=== PATIENT | male | born 1960 | race Two or more races ===

== ENCOUNTER 2020-06-12 15:09 | Inpatient (IN) | payer BC, OTHER ==
[~2020-06-12] VITALS: Ht 165.1 cm; Wt 101.0 kg
--- NOTE | 2020-06-12 15:19 | NUR ---
OXYGEN PLACED IN TRIAGE , PT NOW SATTING 91% ON 6L NC
--- NOTE | 2020-06-12 16:04 | NUR ---
COVID + TESTED TWO WEEKS AGO , LOW PULSE OX READING AT HOME. 75% PER FAMILY REPORT. COUGH, SOB, HEADACHE X 2 WEEKS. PT IN BED IN GOWN,ON CONT [employer], SPO2, BP Q 30 MIN, SIDE RAILS UP X2, CALL LIGHTIN REACH.
[2020-06-12 16:50] LABS: BASOPHILS % (AUTO) 0 % (0-1); EOSINOPHILS % (AUTO) 1 % (1-7); LYMPHOCYTES % (AUTO) 14 % (22-44); MEAN CORPUSCULAR HEMOGLOBIN 31.3 pg (27.5-34.5); MEAN CORPUSCULAR HGB CONC 34.1 g/dL (33.2-36.2); MEAN PLATELET VOLUME 7.6 fL (7.4-10.4); MONOCYTES % (AUTO) 10 % (2-9); NEUTROPHILS % (AUTO) 75 % (42-75); PLATELET COUNT 493 x10^3/uL (130-400); RED BLOOD COUNT 4.96 x10^6/uL (4.38-5.82); RED CELL DISTRIBUTION WIDTH 13.8 % (9.4-14.8)
[2020-06-12 16:54] LABS: ALANINE AMINOTRANSFERASE 46 U/L (12-78); ALBUMIN 2.7 g/dL (3.4-5.0); ANION GAP 6 mmol/L (5-15); CALCIUM 8.7 mg/dL (8.5-10.1); CHLORIDE 103 mmol/L (98-107); CREATININE 1.14 mg/dL (0.7-1.3); MD NO
[2020-06-12 16:57] LABS: ALKALINE PHOSPHATASE 81 U/L (45-117); BILIRUBIN,TOTAL 0.5 mg/dL (0.2-1.0); TOTAL PROTEIN 7.8 g/dL (6.4-8.2)
[2020-06-12] MEDS ORDERED: DOXYCYCLINE 100 MG in DEXTROSE 5% 250 ML IV ONE (17:00)
[2020-06-12] MEDS ORDERED: DEXAMETHASONE 4 MG/ML, 1ML IVPush ONE (17:00)
[2020-06-12] MEDS ORDERED: DEXAMETHASONE 4 MG/ML, 1ML ONE (17:46)
--- NOTE | 2020-06-12 18:48 | NUR ---
RICARDO TURNER RN ASSUMING CARE OF PT AT THIS TIME
--- NOTE | 2020-06-12 18:55 | NUR ---
HOSPTIALIST AT BEDSIDE FOR ADMIT AT THIS TIME
[2020-06-12] MEDS ORDERED: SODIUM CHLORIDE FLUSH 10ML SYR IVF PRN (19:00)
--- NOTE | 2020-06-12 20:09 | NUR ---
report to Bridgett pt ready for transfer to room [id number]
[2020-06-12] MEDS ORDERED: ONDANSETRON ODT 4 MG PO PRN (20:30)
[2020-06-12] MEDS ORDERED: LIDODERM 5% PATCH TD PRN (20:30)
[2020-06-12] MEDS ORDERED: ACETAMINOPHEN 325 MG TABLET PO PRN (20:30)
[2020-06-12] MEDS ORDERED: LABETALOL 5MG/ML, 20ML IVPush PRN (20:30)
[2020-06-12] MEDS ORDERED: DOCUSATE 100 MG CAPSULE PO PRN (20:30)
[2020-06-12] MEDS ORDERED: PHARMACY MAY ADJ FOR RENAL FX MC PRN (20:30)
[2020-06-12 20:41] VITALS: BP 113/57
[2020-06-12 21:03] LABS: TROPONIN I < 0.015 ng/mL (0.000-0.045)
[2020-06-12] MEDS: ASCORBIC ACID 500 MG TABLET PO SCH (21:27)
[2020-06-12] MEDS: MELATONIN 5 MG TABLET PO PRN (21:27)
[2020-06-12] MEDS: ENOXAPARIN 40 MG/0.4 ML SQ SCH (21:27)
[2020-06-12] MEDS: GUAIFENESIN/DM 200-20MG, 10ML UDC PO PRN (21:27)
[2020-06-12] MEDS: CHOLECALCIFEROL 5,000u TAB PO SCH (21:27)
[2020-06-12 22:16] LABS: RAPID INFLUENZA A Negative (Negative); RAPID INFLUENZA B Negative (Negative)
[2020-06-12] MEDS: CEFTRIAXONE PMX 1GM/50ML 50 ML IV SCH (22:53)
[2020-06-13 02:13] VITALS: BP 115/76
[2020-06-13] MEDS: GUAIFENESIN/DM 200-20MG, 10ML UDC PO PRN ×2 (03:07→20:56)
[2020-06-13] MEDS ORDERED: DOXYCYCLINE 100 MG in DEXTROSE 5% 250 ML IV SCH (05:00)
[2020-06-13 06:06] LABS: BASOPHILS % (AUTO) 0 % (0-1); EOSINOPHILS % (AUTO) 0 % (1-7); LYMPHOCYTES % (AUTO) 15 % (22-44); MEAN CORPUSCULAR HEMOGLOBIN 31.7 pg (27.5-34.5); MEAN CORPUSCULAR HGB CONC 34.5 g/dL (33.2-36.2); MEAN PLATELET VOLUME 7.5 fL (7.4-10.4); MONOCYTES % (AUTO) 8 % (2-9); NEUTROPHILS % (AUTO) 76 % (42-75); PLATELET COUNT 514 x10^3/uL (130-400); RED BLOOD COUNT 4.48 x10^6/uL (4.38-5.82); RED CELL DISTRIBUTION WIDTH 13.4 % (9.4-14.8)
[2020-06-13 06:09] LABS: ANION GAP 10 mmol/L (5-15); CALCIUM 8.5 mg/dL (8.5-10.1); CHLORIDE 104 mmol/L (98-107)
[2020-06-13 06:11] LABS: CREATININE 0.94 mg/dL (0.7-1.3)
[2020-06-13 06:39] VITALS: BP 117/73
[2020-06-13 06:40] LABS: HCT (SEDRATE) 41.1 % (39.2-51.8)
[2020-06-13 06:57] LABS: MD SCAN
[2020-06-13] MEDS: DEXAMETHASONE 4 MG/ML, 1ML IVPush SCH (08:53)
[2020-06-13] MEDS: ASCORBIC ACID 500 MG TABLET PO SCH ×3 (08:53→20:57)
[2020-06-13] MEDS: ZINC SULFATE 220 MG CAPSULE PO SCH (08:53)
[2020-06-13] MEDS: CHOLECALCIFEROL 5,000u TAB PO SCH (08:54)
[2020-06-13 12:02] VITALS: BP 111/70
[2020-06-13 15:40] LABS: D-DIMER 0.34 ug/mlFEU (0.00-0.52)
[2020-06-13 20:51] VITALS: BP 129/91
[2020-06-13] MEDS: DOXYCYCLINE 100MG TABLET PO SCH (20:56)
[2020-06-13] MEDS: MELATONIN 5 MG TABLET PO PRN (20:57)
[2020-06-13] MEDS: ENOXAPARIN 40 MG/0.4 ML SQ SCH (20:57)
[2020-06-13] MEDS: CEFTRIAXONE PMX 1GM/50ML 50 ML IV SCH (23:33)
[2020-06-14 01:39] VITALS: BP 121/77
[2020-06-14 06:15] LABS: HCT (SEDRATE) 42.1 % (39.2-51.8)
[2020-06-14 06:19] LABS: ANION GAP 7 mmol/L (5-15); CALCIUM 8.8 mg/dL (8.5-10.1); CHLORIDE 106 mmol/L (98-107); CREATININE 1.06 mg/dL (0.7-1.3)
[2020-06-14 06:28] VITALS: BP 114/72
[2020-06-14 06:37] LABS: BASOPHILS % (AUTO) 0 % (0-1); EOSINOPHILS % (AUTO) 0 % (1-7); LYMPHOCYTES % (AUTO) 12 % (22-44); MEAN CORPUSCULAR HEMOGLOBIN 30.9 pg (27.5-34.5); MEAN CORPUSCULAR HGB CONC 33.4 g/dL (33.2-36.2); MEAN PLATELET VOLUME 7.7 fL (7.4-10.4); MONOCYTES % (AUTO) 10 % (2-9); NEUTROPHILS % (AUTO) 78 % (42-75); PLATELET COUNT 606 x10^3/uL (130-400); RED BLOOD COUNT 4.65 x10^6/uL (4.38-5.82); RED CELL DISTRIBUTION WIDTH 13.1 % (9.4-14.8)
[2020-06-14 07:03] LABS: D-DIMER 0.31 ug/mlFEU (0.00-0.52); INTERNATIONAL NORMALIZED RATIO 1.01 (0.93-1.1); PROTHROMBIN TIME 10.7 Seconds (9.6-11.5)
[2020-06-14] MEDS: ASCORBIC ACID 500 MG TABLET PO SCH ×4 (08:12→20:48)
[2020-06-14 08:14] LABS: MD SCAN
[2020-06-14] MEDS: DOXYCYCLINE 100MG TABLET PO SCH ×2 (08:15→20:47)
[2020-06-14] MEDS: ZINC SULFATE 220 MG CAPSULE PO SCH (08:15)
[2020-06-14] MEDS: DEXAMETHASONE 4 MG/ML, 1ML IVPush SCH (08:16)
[2020-06-14] MEDS: CHOLECALCIFEROL 5,000u TAB PO SCH (08:16)
[2020-06-14 12:00] VITALS: BP 117/73
[2020-06-14] MEDS ORDERED: REMDESIVIR 200 MG in SODIUM CHLORIDE 0.9% 250 ML IVPB ONE (14:00)
[2020-06-14 18:43] VITALS: BP 114/71
[2020-06-14] MEDS: ENOXAPARIN 40 MG/0.4 ML SQ SCH (20:47)
[2020-06-14] MEDS: MELATONIN 5 MG TABLET PO PRN (20:47)
[2020-06-14] MEDS: GUAIFENESIN/DM 200-20MG, 10ML UDC PO PRN (20:47)
[2020-06-15] MEDS: CEFTRIAXONE PMX 1GM/50ML 50 ML IV SCH (00:33)
[2020-06-15 01:50] VITALS: BP 107/68
[2020-06-15 06:23] LABS: HCT (SEDRATE) 41.8 % (39.2-51.8)
[2020-06-15 06:27] LABS: BASOPHILS % (AUTO) 0 % (0-1); EOSINOPHILS % (AUTO) 0 % (1-7); LYMPHOCYTES % (AUTO) 15 % (22-44); MEAN CORPUSCULAR HEMOGLOBIN 31.5 pg (27.5-34.5); MEAN CORPUSCULAR HGB CONC 34.3 g/dL (33.2-36.2); MEAN PLATELET VOLUME 7.3 fL (7.4-10.4); MONOCYTES % (AUTO) 11 % (2-9); NEUTROPHILS % (AUTO) 73 % (42-75); PLATELET COUNT 680 x10^3/uL (130-400); RED BLOOD COUNT 4.52 x10^6/uL (4.38-5.82); RED CELL DISTRIBUTION WIDTH 13.4 % (9.4-14.8)
[2020-06-15 06:34] LABS: CHLORIDE 109 mmol/L (98-107)
[2020-06-15 06:37] VITALS: BP 123/79
[2020-06-15 06:39] LABS: ALANINE AMINOTRANSFERASE 47 U/L (12-78); ALBUMIN 2.6 g/dL (3.4-5.0); ALKALINE PHOSPHATASE 66 U/L (45-117); ANION GAP 10 mmol/L (5-15); BILIRUBIN,TOTAL 0.4 mg/dL (0.2-1.0); CALCIUM 8.4 mg/dL (8.5-10.1); CREATININE 1.02 mg/dL (0.7-1.3)
[2020-06-15 06:55] LABS: MD SCAN
[2020-06-15] MEDS: ZINC SULFATE 220 MG CAPSULE PO SCH (10:14)
[2020-06-15] MEDS: ASCORBIC ACID 500 MG TABLET PO SCH ×3 (10:14→20:45)
[2020-06-15] MEDS: DOXYCYCLINE 100MG TABLET PO SCH ×2 (10:15→20:45)
[2020-06-15] MEDS: CHOLECALCIFEROL 5,000u TAB PO SCH (10:15)
[2020-06-15] MEDS: DEXAMETHASONE 4 MG/ML, 5ML IVPush SCH (12:24)
[2020-06-15 14:00] VITALS: BP 110/72
[2020-06-15] MEDS: REMDESIVIR 100 MG in SODIUM CHLORIDE 0.9% 250 ML IVPB SCH (14:24)
[2020-06-15] MEDS: GUAIFENESIN/DM 200-20MG, 10ML UDC PO PRN (17:00)
[2020-06-15 18:35] VITALS: BP 105/68
[2020-06-15] MEDS: ENOXAPARIN 40 MG/0.4 ML SQ SCH (20:45)
[2020-06-15] MEDS: MELATONIN 5 MG TABLET PO PRN (20:45)
[2020-06-16 00:01] VITALS: BP 118/74
[2020-06-16] MEDS: CEFTRIAXONE PMX 1GM/50ML 50 ML IV SCH (00:27)
[2020-06-16 06:28] VITALS: BP 110/73
[2020-06-16 06:38] LABS: HCT (SEDRATE) 47.3 % (39.2-51.8)
[2020-06-16 06:39] LABS: MEAN CORPUSCULAR HEMOGLOBIN 31.4 pg (27.5-34.5); MEAN CORPUSCULAR HGB CONC 33.6 g/dL (33.2-36.2); MEAN PLATELET VOLUME 7.7 fL (7.4-10.4); PLATELET COUNT 803 x10^3/uL (130-400); RED BLOOD COUNT 5.01 x10^6/uL (4.38-5.82); RED CELL DISTRIBUTION WIDTH 13.6 % (9.4-14.8)
[2020-06-16 06:48] LABS: ANION GAP 7 mmol/L (5-15); CALCIUM 8.9 mg/dL (8.5-10.1); CHLORIDE 106 mmol/L (98-107); CREATININE 1.13 mg/dL (0.7-1.3)
[2020-06-16 06:49] LABS: ALANINE AMINOTRANSFERASE 54 U/L (12-78)
[2020-06-16 06:53] LABS: ALKALINE PHOSPHATASE 66 U/L (45-117); BILIRUBIN,TOTAL 0.4 mg/dL (0.2-1.0); TOTAL PROTEIN 7.7 g/dL (6.4-8.2)
[2020-06-16 06:57] LABS: D-DIMER 0.4 ug/mlFEU (0.00-0.52); INTERNATIONAL NORMALIZED RATIO 1.03 (0.93-1.1); PROTHROMBIN TIME 10.9 Seconds (9.6-11.5)
[2020-06-16 07:29] LABS: MD YES
[2020-06-16 07:30] LABS: BAND#(MANUAL) 0.97 x10^3/uL; BANDS%(MANUAL) 7 % (0-7); METAMYELOCYTES# (MANUAL) 0.55 x10^3/uL (0-0); METAMYELOCYTES% (MANUAL) 4 % (0-1); MONOS% (MANUAL) 8 % (2-9); MYELOCYTES# (MANUAL) 0.14 x10^3/uL (0-0); MYELOCYTES% (MANUAL) 1 % (0-0); REACTIVE LYMPHS # (MANUAL) 0.14 x10^3/uL (0-0); REACTIVE LYMPHS % (MANUAL) 1 % (0-0)
[2020-06-16 07:31] LABS: <PLATELET ESTIMATE> INCREASED; <PLT MORPHOLOGY> NORMAL PLT MORPH; <RBC MORPHOLOGY> NORMAL; LYMPH#(MANUAL) 2.62 x10^3/uL (1-3.4); LYMPHS% (MANUAL) 19 % (22-44); SEG#(MANUAL) 8.28 x10^3/uL (1.8-6.8); SEGS% (MANUAL) 60 % (42-75)
[2020-06-16] MEDS: ASCORBIC ACID 500 MG TABLET PO SCH ×3 (09:10→21:33)
[2020-06-16] MEDS: ZINC SULFATE 220 MG CAPSULE PO SCH (09:10)
[2020-06-16] MEDS: CHOLECALCIFEROL 5,000u TAB PO SCH (09:10)
[2020-06-16] MEDS: DOXYCYCLINE 100MG TABLET PO SCH ×2 (09:10→21:33)
[2020-06-16] MEDS: DEXAMETHASONE 4 MG/ML, 5ML IVPush SCH (09:11)
[2020-06-16 13:08] VITALS: BP 124/78
[2020-06-16] MEDS: REMDESIVIR 100 MG in SODIUM CHLORIDE 0.9% 250 ML IVPB SCH (15:37)
[2020-06-16 20:10] VITALS: BP 126/79
[2020-06-16] MEDS: ENOXAPARIN 40 MG/0.4 ML SQ SCH (21:33)
[2020-06-16] MEDS: MELATONIN 5 MG TABLET PO PRN (21:38)
[2020-06-17 00:07] VITALS: BP 119/79
[2020-06-17] MEDS: CEFTRIAXONE PMX 1GM/50ML 50 ML IV SCH (00:07)
[2020-06-17 07:34] LABS: MEAN CORPUSCULAR HEMOGLOBIN 31.4 pg (27.5-34.5); MEAN CORPUSCULAR HGB CONC 33.9 g/dL (33.2-36.2); MEAN PLATELET VOLUME 7.1 fL (7.4-10.4); PLATELET COUNT 852 x10^3/uL (130-400); RED BLOOD COUNT 4.95 x10^6/uL (4.38-5.82); RED CELL DISTRIBUTION WIDTH 13.3 % (9.4-14.8)
[2020-06-17 07:39] LABS: ALANINE AMINOTRANSFERASE 50 U/L (12-78); ALBUMIN 2.9 g/dL (3.4-5.0); ANION GAP 8 mmol/L (5-15); CALCIUM 8.8 mg/dL (8.5-10.1); CHLORIDE 108 mmol/L (98-107); CREATININE 1.08 mg/dL (0.7-1.3)
[2020-06-17 07:42] LABS: ALKALINE PHOSPHATASE 62 U/L (45-117); BILIRUBIN,TOTAL 0.4 mg/dL (0.2-1.0); HCT (SEDRATE) 46.5 % (39.2-51.8); TOTAL PROTEIN 7.3 g/dL (6.4-8.2)
[2020-06-17 07:44] VITALS: BP 110/74
[2020-06-17 08:01] LABS: MD YES
[2020-06-17 08:03] LABS: <PLATELET ESTIMATE> INCREASED; <PLT MORPHOLOGY> NORMAL PLT MORPH; <RBC MORPHOLOGY> NORMAL; BAND#(MANUAL) 0.18 x10^3/uL; BANDS%(MANUAL) 1 % (0-7); LYMPHS% (MANUAL) 24 % (22-44); MONOS#(MANUAL) 1.58 x10^3/uL (0.3-2.7); MONOS% (MANUAL) 9 % (2-9); MYELOCYTES# (MANUAL) 0.18 x10^3/uL (0-0); MYELOCYTES% (MANUAL) 1 % (0-0); REACTIVE LYMPHS % (MANUAL) 4 % (0-0); SEG#(MANUAL) 10.68 x10^3/uL (1.8-6.8); SEGS% (MANUAL) 61 % (42-75)
[2020-06-17] MEDS: DOXYCYCLINE 100MG TABLET PO SCH ×2 (08:50→20:58)
[2020-06-17] MEDS: ZINC SULFATE 220 MG CAPSULE PO SCH (08:50)
[2020-06-17] MEDS: ASCORBIC ACID 500 MG TABLET PO SCH ×3 (08:50→20:58)
[2020-06-17] MEDS: CHOLECALCIFEROL 5,000u TAB PO SCH (08:50)
[2020-06-17] MEDS: DEXAMETHASONE 4 MG/ML, 5ML IVPush SCH (08:50)
[2020-06-17] MEDS: GUAIFENESIN/DM 200-20MG, 10ML UDC PO PRN ×2 (10:17→21:06)
[2020-06-17 13:08] VITALS: BP 114/75
[2020-06-17] MEDS: REMDESIVIR 100 MG in SODIUM CHLORIDE 0.9% 250 ML IVPB SCH (14:43)
[2020-06-17] MEDS ORDERED: ASCORBIC ACID 250 MG TAB ONE (20:51)
[2020-06-17 20:57] VITALS: BP 113/74
[2020-06-17] MEDS: MELATONIN 5 MG TABLET PO PRN (20:58)
[2020-06-17] MEDS: ENOXAPARIN 40 MG/0.4 ML SQ SCH (20:58)
[2020-06-18] MEDS: CEFTRIAXONE PMX 1GM/50ML 50 ML IV SCH (00:37)
[2020-06-18 00:45] VITALS: BP 118/79
[2020-06-18 07:30] LABS: HCT (SEDRATE) 43.6 % (39.2-51.8)
[2020-06-18 07:41] LABS: CHLORIDE 109 mmol/L (98-107)
[2020-06-18 07:44] LABS: MEAN CORPUSCULAR HGB CONC 33.8 g/dL (33.2-36.2); MEAN PLATELET VOLUME 7.3 fL (7.4-10.4); PLATELET COUNT 857 x10^3/uL (130-400); RED BLOOD COUNT 4.76 x10^6/uL (4.38-5.82); RED CELL DISTRIBUTION WIDTH 13.5 % (9.4-14.8)
[2020-06-18 07:52] LABS: ALANINE AMINOTRANSFERASE 44 U/L (12-78); ALBUMIN 2.7 g/dL (3.4-5.0); ALKALINE PHOSPHATASE 55 U/L (45-117); ANION GAP 8 mmol/L (5-15); BILIRUBIN,TOTAL 0.4 mg/dL (0.2-1.0); CALCIUM 8.6 mg/dL (8.5-10.1); CREATININE 0.96 mg/dL (0.7-1.3); TOTAL PROTEIN 6.6 g/dL (6.4-8.2)
[2020-06-18 08:11] VITALS: BP 119/79
[2020-06-18 08:47] LABS: D-DIMER 0.3 ug/mlFEU (0.00-0.52); INTERNATIONAL NORMALIZED RATIO 1.06 (0.93-1.1); PROTHROMBIN TIME 11.2 Seconds (9.6-11.5)
[2020-06-18 08:55] LABS: MD YES
[2020-06-18 08:57] LABS: BAND#(MANUAL) 1.63 x10^3/uL; BANDS%(MANUAL) 9 % (0-7); LYMPHS% (MANUAL) 21 % (22-44); MONOS#(MANUAL) 1.81 x10^3/uL (0.3-2.7); MONOS% (MANUAL) 10 % (2-9); MYELOCYTES# (MANUAL) 0.18 x10^3/uL (0-0); MYELOCYTES% (MANUAL) 1 % (0-0); REACTIVE LYMPHS # (MANUAL) 0.18 x10^3/uL (0-0); REACTIVE LYMPHS % (MANUAL) 1 % (0-0); SEGS% (MANUAL) 58 % (42-75)
[2020-06-18 08:58] LABS: <PLATELET ESTIMATE> INCREASED; <PLT MORPHOLOGY> NORMAL PLT MORPH; <RBC MORPHOLOGY> NORMAL
[2020-06-18] MEDS: ASCORBIC ACID 500 MG TABLET PO SCH ×2 (09:00→16:14)
[2020-06-18] MEDS: DEXAMETHASONE 4 MG/ML, 5ML IVPush SCH (09:00)
[2020-06-18] MEDS: ZINC SULFATE 220 MG CAPSULE PO SCH (09:01)
[2020-06-18] MEDS: DOXYCYCLINE 100MG TABLET PO SCH (09:01)
[2020-06-18] MEDS: CHOLECALCIFEROL 5,000u TAB PO SCH (09:01)
[2020-06-18] MEDS ORDERED: CHOL10003 PO (10:39)
[2020-06-18] MEDS ORDERED: ZINC220C7 PO (10:39)
[2020-06-18] MEDS ORDERED: MELA5TAB14 PO (10:39)
[2020-06-18] MEDS ORDERED: ASCO500T9 PO (10:39)
[2020-06-18] MEDS ORDERED: THIA100T67 PO (10:39)
[2020-06-18 12:20] VITALS: BP 118/78
[2020-06-18] MEDS: REMDESIVIR 100 MG in SODIUM CHLORIDE 0.9% 250 ML IVPB SCH (13:19)
== END 2020-06-18 16:16 | disposition home or self-care (01) | DRG 177 ==
LOC: ED 18:20 → EDIP 18:57 → 4WST 20:30
PROVIDERS: ADMIT Internal Medicine; ATTEND Internal Medicine
PROC: XW033E5 Introduction of Remdesivir Anti-infective into Peripheral Vein, Percutaneous Approach, New Technology Group 5 (ICD-10-PCS; principal; 2020-06-13)
DX: U07.1 COVID-19 (principal); J12.89 Other viral pneumonia; J96.01 Acute respiratory failure with hypoxia; E66.01 Morbid (severe) obesity due to excess calories; I10 Essential (primary) hypertension; Z68.37 Body mass index [BMI] 37.0-37.9, adult; Z80.42 Family history of malignant neoplasm of prostate; Z82.5 Family history of asthma and other chronic lower respiratory diseases; Z86.19 Personal history of other infectious and parasitic diseases
CPT/HCPCS: 36415; 71045; 80048; 80053; 83615; 84145; 84484; 85025; 85379; 85384; 85610; 85651; 85730; 87400; 93005; 96374; 99285; G0378; J0696; J1100; J1650; J7060; J7050

== ENCOUNTER 2021-03-15 16:02 | Emergency (ER) | payer BC ==
[~2021-03-15] VITALS: Ht 165.1 cm; Wt 111.0 kg
[~2021-03-15 16:02] MED LIST: ASCO500T9 PO; CHOL10003 PO; MELA5TAB14 PO; THIA100T67 PO; ZINC220C7 PO
--- NOTE | 2021-03-15 16:19 | NUR ---
EKG OF PT PERFORMED IN TRIAGE.
[2021-03-15] MEDS ORDERED: ASPIRIN 81 MG TABLET CHEW PO ONE (16:30)
[2021-03-15 16:58] LABS: ALANINE AMINOTRANSFERASE 22 U/L (12-78); ALBUMIN 3.7 g/dL (3.4-5.0); ANION GAP 6 mmol/L (5-15); CALCIUM 9.1 mg/dL (8.5-10.1); CHLORIDE 109 mmol/L (98-107); CREATININE 1.18 mg/dL (0.7-1.3)
[2021-03-15 17:01] LABS: BASOPHILS % (AUTO) 1 % (0-1); EOSINOPHILS % (AUTO) 2 % (1-7); LYMPHOCYTES % (AUTO) 34 % (22-44); MEAN CORPUSCULAR HGB CONC 33.5 g/dL (33.2-36.2); MEAN PLATELET VOLUME 8.3 fL (7.4-10.4); MONOCYTES % (AUTO) 8 % (2-9); NEUTROPHILS % (AUTO) 56 % (42-75); PLATELET COUNT 331 x10^3/uL (130-400); RED BLOOD COUNT 5.31 x10^6/uL (4.38-5.82); RED CELL DISTRIBUTION WIDTH 13.7 % (9.4-14.8)
[2021-03-15 17:03] LABS: ALKALINE PHOSPHATASE 71 U/L (45-117); BILIRUBIN,TOTAL 0.4 mg/dL (0.2-1.0); TOTAL PROTEIN 7.7 g/dL (6.4-8.2); TROPONIN I < 0.015 ng/mL (0.000-0.045)
--- NOTE | 2021-03-15 19:42 | NUR ---
supervisor dry cleaning: patient to room from lobby.
--- NOTE | 2021-03-15 19:49 | NUR ---
PT BIB SPOUSE VIA POV. PER PT HE HAD CP AT [facility]OX 1100 THIS MORNING AND WAS SEEN AT . PT STATES HE NO LONGER HAS ANY SYMPTOMS AND FEELS MUCH BETTER. ABIDA FRANCIS AT BEDSIDE FOR EVAL.
[2021-03-15 19:50] VITALS: BP 137/84
== END 2021-03-15 20:03 | disposition home or self-care (01) ==
LOC: ED 19:30
DX: R07.89 Other chest pain (principal); R06.02 Shortness of breath; R94.31 Abnormal electrocardiogram [ECG] [EKG]
CPT/HCPCS: 36415; 71045; 80053; 84484; 85025; 93005; 99285